=== PATIENT | male | born 1995 | race Caucasian/White ===

== ENCOUNTER 2021-05-08 17:44 | Emergency (ER) | payer MEDICAID ==
[~2021-05-08] VITALS: Ht 172.7 cm; Wt 73.0 kg
[2021-05-08] MEDS ORDERED: ZIPRASIDONE HCL 20MG CAPSULE PO STA (18:04)
[2021-05-08] MEDS ORDERED: SODIUM CHLORIDE 0.9% 1,000 ML IV ONE (18:15)
[2021-05-08 18:37] LABS: BASOPHILS % 0.4 % (0.0-2.0); EOSINOPHILS % 0.7 % (0.0-5.0); HEMATOCRIT. 43.8 % (42.0-52.0); HEMOGLOBIN. 14.9 g/dL (14.0-18.0); MEAN CORPUSCULAR VOLUME 91.2 fL (80.0-94.0); MEAN PLATELET VOLUME 9.2 fl (7.4-10.4); MONOCYTES % 11.3 % (2.0-8.0); NEUTROPHILS % 77.6 % (40.0-76.0); PLATELET 114 x1000/uL (130-400); RED CELL DISTRIBUTION WIDTH 13.7 % (11.6-14.6)
[2021-05-08 18:42] LABS: CHLORIDE 108 mEq/L (98-107)
[2021-05-08 18:47] LABS: ETHANOL BLOOD < 10 mg/dL
[2021-05-08 18:59] LABS: CLARITY URINE CLOUDY (CLEAR); COLOR URINE DARK YELLOW (YELLOW); KETONES URINE 1+ (NEGATIVE); LEUKOCYTE ESTERASE URINE NEGATIVE (NEGATIVE); NITRITE URINE NEGATIVE (NEGATIVE); OCCULT BLOOD URINE NEGATIVE (NEGATIVE); PROTEIN URINE 1+ (NEGATIVE); SPECIFIC GRAVITY URINE 1.044 (1.005-1.030); UROBILINOGEN URINE 0.2 E.U./dL (0.2-1.0)
[2021-05-08 19:10] LABS: *AMPHETAMINES SCREEN URINE NEGATIVE (NEGATIVE); *BARBITURATES SCREEN URINE NEGATIVE (NEGATIVE); *BENZODIAZEPINES SCREEN URINE NEGATIVE (NEGATIVE); *COCAINE SCREEN URINE NEGATIVE (NEGATIVE)
[2021-05-08 19:11] LABS: CANNABINOID URINE SCREEN NEGATIVE (NEGATIVE); METHADONE URINE SCREEN NEGATIVE (NEGATIVE); OPIATES URINE SCREEN NEGATIVE (NEGATIVE); PHENCYCLIDINE URINE SCREEN NEGATIVE (NEGATIVE)
[2021-05-09] MEDS ORDERED: SODIUM CHLORIDE 0.9% 500 ML IV ONE (00:15)
[2021-05-09 12:50] VITALS: BP 110/72
== END 2021-05-09 12:50 | disposition home or self-care (01) ==
LOC: ER 17:44
DX: F23 Brief psychotic disorder (principal); R41.82 Altered mental status, unspecified; R44.0 Auditory hallucinations; R45.851 Suicidal ideations; Z20.822 Contact with and (suspected) exposure to COVID-19; E86.0 Dehydration
CPT/HCPCS: 36415; 71045; 80053; 80305; 80307; 80320; 80329; 81003; 85025; 93005; 96360; 96361; 99285; C9803; J7030; J7040; U0003; U0005; G0480